=== PATIENT | female | born 1955 | race Caucasian/White ===

== ENCOUNTER 2017-07-27 14:41 | Outpatient (CLI) | payer BC | END 2017-07-27 14:42 | disposition home or self-care (01) | LOC: BICMAMMO 14:41 | PROVIDERS: ATTEND Obstetrics & Gynecology | DX: Z80.3 Family history of malignant neoplasm of breast; Z12.31 Encounter for screening mammogram for malignant neoplasm of breast | CPT/HCPCS: 77063; 77067 ==

== ENCOUNTER 2017-11-07 09:12 | Outpatient (CLI) | payer BC ==
--- NOTE | 2017-11-07 10:24 | RAD ---
TWO VIEWS LEFT HAND: Comparison: None. History: Bilateral hand pain off and on. Polyarthralgia and positive BARRIE. FINDINGS: Three views of the left hand shows no evidence of acute fracture or dislocation. There is mild joint space narrowing in the DIP joints of the fingers consistent with osteoarthritis. No soft tissue swell ing is seen. No osseous erosions are present. IMPRESSION: Mild osteoarthritis without acute osseous abnormality. POS: H
--- NOTE | 2017-11-07 10:44 | RAD ---
RIGHT HAND THREE VIEWS: History: Positive AMA laboratory result. Polyarthralgia. Comparison: None. FINDINGS: There is mild scattered osteophytosis and joint space narrowing of the right hand. No evidence of ero sive arthropathy or acute fracture. IMPRESSION: 1. Mild scattered osteophytosis of the right hand. 2. No acute osseous abnormality. POS: [facility]
== END 2017-11-07 09:13 | disposition home or self-care (01) ==
LOC: SCSRAD 09:12
DX: M25.50 Pain in unspecified joint (principal); R76.8 Other specified abnormal immunological findings in serum; M25.741 Osteophyte, right hand; M19.042 Primary osteoarthritis, left hand

== ENCOUNTER 2018-05-30 09:55 | Outpatient (CLI) | payer BC ==
--- NOTE | 2018-05-30 11:08 | RAD ---
RADIOGRAPH CHEST 2 VIEWS: HISTORY: 63-year-old female with cough. FINDINGS: There is no air space density, pulmonary edema, pleural effusion, pneumothorax, or cardiomegaly. IMPRESSION: No acute cardiopulmonary findings. alban POS: [facility]
== END 2018-05-30 09:56 | disposition home or self-care (01) ==
LOC: SCSRAD 09:55
PROVIDERS: ATTEND Family Medicine
DX: J22 Unspecified acute lower respiratory infection (principal)
CPT/HCPCS: 71046

== ENCOUNTER 2018-06-03 11:20 | Inpatient (IN) | payer BC ==
[2018-06-03 11:59] LABS: #Eosinphils 0.2 thou/uL (0.0-0.7); #Lymphocytes 1.7 thou/uL (1.20-3.40); #Monocytes 0.9 thou/uL (0.11-0.59); #Neutrophils 9.4 thou/uL (1.40-6.50); %Basophils 0.1 % (0.0-1.0); %Eosinophils 1.6 % (0.0-10.0); %Lymphocytes 14.1 % (21.0-51.0); %Monocytes 7.2 % (0.0-10.0); Hemoglobin 14.8 g/dL (12.0-16.0); Mean Corpuscular HGB CONC 31.1 g/dL (32.0-36.0); Mean Corpuscular Hemoglobin 27.4 pg (27.0-31.0); Mean Corpuscular Volume 88.1 fL (78.0-98.0); Mean Platelet Volume 6.5 fL (7.4-10.4); Platelet Count 258 thou/uL (130-400); RBC Distribution Width 12.4 % (11.5-14.5); Red Blood Cell (RBC) Count 5.38 mill/uL (4.20-5.40); White Blood Cell (WBC) Count 12.1 thou/uL (4.8-10.8)
--- NOTE | 2018-06-03 12:17 | RAD ---
PORTABLE CHEST: 06/03/2018 PROVIDED CLINICAL HISTORY: Cough. COMPARISON: 05/30/2018 FINDINGS: The cardiac and mediastinal silhouette is unchanged in appearance. The lungs appear clear. No pleur al fluid or pneumothorax apparent. IMPRESSION: No evidence for acute cardiopulmonary process. POS: [facility]
[2018-06-03 12:23] LABS: ALT (SGPT) 14 U/L (8-55); AST (SGOT) 14 U/L (5-34); Albumin 4.1 g/dL (3.4-4.8); Alkaline Phosphatase 85 U/L (40-150); Anion Gap 18 mmol/L (10-20); BUN (Urea Nitrogen) 9 mg/dL (9.8-20.1); Bilirubin, Total 0.6 mg/dL (0.2-1.2); Calc. Creatinine Clearance 0 mL/min (70-130); Calcium 10.2 mg/dL (7.8-10.44); Carbon Dioxide 19 mmol/L (23-31); Chloride 99 mmol/L (98-107); Estimated GFR-MDRD 63; Glucose 166 mg/dL (80-115); Potassium 4.3 mmol/L (3.5-5.1); Protein, Total 8.1 g/dL (6.0-8.3); Sodium 132 mmol/L (136-145)
[2018-06-03 12:52] LABS: Bilirubin Small (Negative); Blood, Urine Negative (Negative); Glucose, Urine (Dipstick) Negative (Negative); Leukocyte Negative (Negative); Nitrite Negative (Negative); Protein, Urine (Dipstick) Negative (Neg-Trace); Urobilinogen 0.2 mg/dL (0.2-1.0)
[2018-06-03 13:03] LABS: Clarity Clear (Clear); Specific Gravity, Urine 1.018 (1.002-1.036)
[2018-06-03] MEDS ORDERED: ISOVUE-370 76%-LOCM 1 ML ONE (13:12)
[2018-06-03] MEDS ORDERED: Cefepime 2 GM VIAL ONE (13:34)
[2018-06-03] MEDS ORDERED: Gentamicin Sulfate 320 MG in Sodium Chloride 0.9% 100 ML IVPB SCH (14:00)
--- NOTE | 2018-06-03 14:01 | CT ---
CT PULMONARY ANGIOGRAM WITH IV CONTRAST AND 3D MIP RECONSTRUCTIONS: DATE: 06/03/2018. PROVIDED CLINICAL HISTORY: Cough. FINDINGS: The heart, pericardium, and great vessels demonstrate no evidence for an acute process. There is no evidence for central or segmental pulmonary embolus. The main pulmonary artery segment is enlarged, suggesting elevated pulmonary arterial pressures. There is patchy multifocal airspace disease present throughout primarily both lower lobes with a few scattered areas of ground-glass opacity present in the right middle lobe, right upper lobe, and left upper lobe. The airway appears patent and of normal caliber. There is no pleural fluid or pneumothorax apparent. The visualized portions of the upper abdomen appear unremarkable other than a mild hiatal hernia. Th ere is no evidence for thoracic lymph node enlargement of mildly prominent bilateral hilar lymph node s present. The osseous structures demonstrate no concerning osteoblastic or osteolytic lesions. IMPRESSION: 1. No evidence for central or segmental pulmonary embolus. Prominence of the main pulmonary artery segment suggests elevated pulmonary arterial pressures. 2. Patchy bilateral airspace disease most conspicuously affecting the bilateral lower lobes, most co mpatible with pneumonia. Followup is recommended. POS: [facility]
[2018-06-03] MEDS ORDERED: guaiFENesin/Codeine Phosphate 200 mg/20 mg 10 ml UD Cup PO PRN (14:15)
[2018-06-03] MEDS ORDERED: Vancomycin HCl 1.5 GM in Sodium Chloride 0.9% 250 ML 300 ML IVPB SCH (14:30)
[2018-06-03] MEDS ORDERED: Bacteriostatic Water 30 ML VIAL FS PRN (14:44)
[2018-06-03] MEDS ORDERED: methylPREDNISolone Sod Succ 40 MG VIAL IVP SCH (15:00)
[2018-06-03 15:39] VITALS: BMI 36.8
[2018-06-03] MEDS ORDERED: methylPREDNISolone Sod Succ 40 MG VIAL ONE (15:51)
[2018-06-03] MEDS: Sodium Chloride 0.9% 1,000 ML IV SCH (18:10)
[2018-06-03 18:43] LABS: Legionella Urinary Ag Negative (Negative)
[2018-06-03 18:44] LABS: Strep pneumo Urine Ag NEGATIVE (NEGATIVE)
--- NOTE | 2018-06-03 18:48 | HP ---
CHIEF COMPLAINT: Shortness of breath. HISTORY OF PRESENT ILLNESS: The patient is a 63-year-old female with past medical history of asthma, sinus, and hypertension, who presented to the hospital with shortness of breath. The patient stated that since May 09, 2018, she initially started presented with sinus infection and was given Augmentin. Her symptoms continued to worsen. At this time, her antibiotic was changed to Levaquin. There was some mention per her PCP notes that it appeared the patient started to have a worsening productive cough and shortness of breath. The patient had multiple x-rays, which did fail to reveal any pneumonia. She was recently prescribed azithromycin, which she finished yesterday. She continued to have shortness of breath and cough, so she followed up with her PCP today, who asked her to come into the hospital for further evaluation. Her last chest x-ray was done on 05/30, which was normal. The patient states that she initially starts having a cough to the point that she cannot stop coughing and she gets very short of breath and cannot catch her breath. The patient denies any chest tightness, any fevers, or chills; however, she states that sometimes she gets low-grade fever. Denies any body aches or pains. The patient states that she has been coughing up some thick secretions for the past few weeks. The patient today in her doctor's office found to have low oxygenation, especially during coughing, and when she is ambulating, her oxygen saturations run at 90% to 92%. She also has hoarseness. The patient also was put on some steroids for her asthma exacerbation. This was prior in the month of April. PAST MEDICAL HISTORY: The patient has a history of GERD. She has a history of hypertension, osteoarthritis, allergies, asthma. She does have a history of sleep apnea. She has a family history of melanoma. PAST SURGICAL HISTORY: She had D and C in 1973. She had a total abdominal hysterectomy and bilateral salpingo-oophorectomy. She had a colonoscopy, that was benign. She has upper GI endoscopy in 2005 and 2008. FAMILY HISTORY: As I mentioned, history of melanoma. Father had melanoma. Mother had heart disease. SOCIAL HISTORY: The patient is a nonsmoker. No alcohol use or drug use. She is , and she works in a university. ALLERGIES: 1. SHE IS ALLERGIC TO LIPITOR, SHE GETS CRAMPS. 2. CRESTOR, SHE GETS CRAMPS. 3. MACRODANTIN. 4. SHE IS ALSO ALLERGIC TO ZETIA, SHE GETS DIARRHEA. 5. PRAVASTATIN, SHE GETS CRAMPS. MEDICATIONS: As of the followin. She takes lisinopril 10 mg daily. 2. She takes vitamin D3 of 2000 daily. 3. She takes Advair Diskus 1 puff twice a day. 4. She takes Singulair 10 mg daily. 5. She takes Celebrex 200 mg daily. 6. Omeprazole 40 mg daily. 7. Estradiol 0.5 mg daily. REVIEW OF SYSTEMS: All negative except for the ones mentioned above in the HPI. PHYSICAL EXAMINATION: VITAL SIGNS: Temperature 98.4, heart rate 93, respiratory rate 18, saturation 95% on room air, blood pressure 110/69. GENERAL: She is awake, alert, and oriented x3. She does not appear in any distress. HEENT: Appears hoarse. Pupils are equal and reactive to light. No lymphadenopathy noted. Mucous membranes are moist. CV: S1 and S2 present. No murmurs, rubs, or gallops. LUNGS: Clear upon auscultation; however, she does have a mild expiratory wheezing. ABDOMEN: Obese. Bowel sounds are present x2. No pain upon palpation. EXTREMITIES: Lower extremities; no edema. Pedal pulses are present x2. NEUROVASCULAR: No focal deficits noted. SKIN: No cuts, lesions, or bruises noted. LABORATORY RESULTS: As of the following: WBCs of 12.1, hemoglobin of 14.8, hematocrit of 47.4, platelets of 258. Chemistry; sodium of 132, potassium of 4.3, BUN of 9, creatinine 0.9. Lactic acid of 2.6. Troponin x2 were negative. LFTs were normal. Her urine was negative. She did have a CTA, which did not indicate any pulmonary embolism. She does have a patchy bilateral airspace disease, more conspicuously affecting the bilateral lower lobes, compatible with pneumonia. ASSESSMENT AND PLAN: The patient is a very pleasant 63-year-old female, who presents to the hospital with complaints of worsening shortness of breath. 1. Shortness of breath. This could be pneumonia, failed outpatient therapy versus cardiac etiology versus pulmonary embolism. Her CTA was negative for pulmonary embolism. We will trend her troponins. So far, her troponins have been negative. We will also get an echocardiogram to make sure her cardiac function is stable. We will check a BNP. The patient has been on 3 different types of antibiotics and has failed treatment. We will also swab her for the flu and viral studies. We will check a sputum culture. We will check Streptococcus pneumoniae, urine, and Legionella. We will put her on some broad-spectrum antibiotics and continue to monitor. We will also give her something for cough to hopefully suppress her cough. We will start her on some DuoNeb, and we will give her some steroids also. 2. Hypertension. We will continue her home medications. 3. Sleep apnea. We will continue her CPAP. 4. Deep venous thrombosis prophylaxis. We will put the patient on Lovenox subcutaneously. Job ID: [id number]
[2018-06-03] MEDS ORDERED: CeleCOXIB 100 MG CAP PO PRN (21:10)
[2018-06-03] MEDS: cefTRIAXone\\ROCEPHIN 2 GM in Sodium Chloride 0.9% 100 ML IVPB SCH (21:13)
[2018-06-03] MEDS ORDERED: Lisinopril 10 MG TAB PO SCH (21:15)
[2018-06-03] MEDS ORDERED: Montelukast Sodium 10 mg Tablet PO SCH (21:15)
[2018-06-03] MEDS ORDERED: Estradiol 1 MG TAB PO SCH (21:30)
[2018-06-03] MEDS ORDERED: Oseltamivir 75 MG CAP PO SCH (21:30)
[2018-06-04] MEDS: Sodium Chloride 0.9% 1,000 ML IV SCH ×2 (03:42→17:46)
[2018-06-04] MEDS: Acetaminophen 325 MG TAB PO PRN ×4 (04:05→21:57)
[2018-06-04] MEDS: Enoxaparin Sodium 40 MG/0.4 ML SYRINGE SC SCH (08:44)
[2018-06-04] MEDS: Oseltamivir 75 MG CAP PO SCH ×2 (08:45→20:03)
[2018-06-04] MEDS: methylPREDNISolone Sod Succ 40 MG VIAL IVP SCH (08:45)
--- NOTE | 2018-06-04 14:01 | PQF ---
CLINICAL DOCUMENTATION IMPROVEMENT CLARIFICATION FORM: ICD-10 Updated PLEASE DO AN ADDENDUM TO THE PROGRESS NOTE WITH ANY DOCUMENTATION UPDATES OR ADDITIONS AND CARRY THROUGH TO DC SUMMARY. THANK YOU. DATE: 06/04/18 ATTN: DR. RAZO Please exercise your independent, professional judgment in responding to the clarification form. Clinical indicators are provided on the bottom of this form for your review Please check appropriate box(s) to clarify if the following diagnosis has been ruled in or ruled out: SEPSIS [ x ] Ruled in diagnosis [ ] Continue to treat [ ] Resolved [ ] Ruled out diagnosis [ ] Cannot rule out diagnosis [ ] Other diagnosis [ ] Unable to determine In addition, please specify: Present on Admission (POA): [ x ] Yes [ ] No [ ] Unable to determine For continuity of documentation, please document condition throughout progress notes and discharge summary. Thank You. CLINICAL INDICATORS - SIGNS / SYMPTOMS / LABS ER NOTE: "SEVERE SEPSIS CRITERIA" PULSE 105 RR 25 WBC 12.1 LACTIC ACID 2.6 GLUCOSE 166 RISKS: PNEUMONIA WITH FAILURE OF OUTPATIENT TREATMENT H/O ASTHMA TREATMENT: IV GENTAMYCIN (ER) IV VANCOMYCIN (ER) IV CEFEPIME (ER) IV ROCEPHIN (06/03-PRESENT) IV VIBRAMYCIN (06/03-PRESENT) IV FLUIDS (ER-PRESENT) SERIAL LABS BLOOD CULTURES (This form is maintained as a part of the permanent medical record) 2014 [employer]. All Rights Reserved ALBERT [email or web address] Office: [phone] [facility]
--- NOTE | 2018-06-04 14:11 | PQF ---
CLINICAL DOCUMENTATION IMPROVEMENT CLARIFICATION FORM: ICD-10 Updated PLEASE DO AN ADDENDUM TO THE PROGRESS NOTE WITH ANY DOCUMENTATION UPDATES OR ADDITIONS AND CARRY THROUGH TO DC SUMMARY. THANK YOU. DATE: 06/04/18 ATTN: DR. RAZO Please exercise your independent, professional judgment in responding to the clarification form. Clinical indicators are provided on the bottom of this form for your review Please check appropriate box(s): [ ] Aspiration Pneumonia [ ] Aspiration Bronchitis [ x] Empirically treating Gram Negative Pneumonia [ ] Empirically treating Anaerobic Pneumonia [ ] Pneumonia secondary to (specify organism / underlying disease) [ ] Simple Pneumonia (community acquired - nosocomial) [ ] Bronchopneumonia [ ] Pneumonia of unknown etiology [ ] Other diagnosis [ ] Unable to determine In addition, please specify: Present on Admission (POA): [ ] Yes [ ] No [ ] Unable to determine For continuity of documentation, please document condition throughout progress notes and discharge summary. Thank You. CLINICAL INDICATORS - SIGNS / SYMPTOMS / LABS ER NOTE: "MULTIFOCAL PNEUMONIA" H&P: "THIS COULD BE PNEUMONIA, FAILED OUTPATIENT THERAPY VERSUS CARDIAC ETIOLOGY VERSUS PULMONARY EMBOLISM." PULSE 105 RR 25 WBC 12.1 LACTIC ACID 2.6 GLUCOSE 166 RISKS: PNEUMONIA WITH FAILURE OF OUTPATIENT TREATMENT H/O ASTHMA TREATMENT: IV GENTAMYCIN (ER) IV VANCOMYCIN (ER) IV CEFEPIME (ER) IV ROCEPHIN (06/03-PRESENT) IV VIBRAMYCIN (06/03-PRESENT) IV FLUIDS (ER-PRESENT) SERIAL LABS BLOOD CULTURES (This form is maintained as a part of the permanent medical record) 2014 [employer]. All Rights Reserved ALBERT [email or web address] Office: [phone] [facility]
[2018-06-04] MEDS: Benzonatate 100 MG CAP PO PRN (17:42)
[2018-06-04] MEDS: cefTRIAXone\\ROCEPHIN 2 GM in Sodium Chloride 0.9% 100 ML IVPB SCH (17:43)
[2018-06-04] MEDS: Montelukast Sodium 10 mg Tablet PO SCH (20:03)
[2018-06-04] MEDS: Lisinopril 10 MG TAB PO SCH (20:07)
[2018-06-04] MEDS: Estradiol 1 MG TAB PO SCH (21:59)
[2018-06-05] MEDS: Acetaminophen 325 MG TAB PO PRN ×3 (06:20→20:10)
[2018-06-05] MEDS: Benzonatate 100 MG CAP PO PRN ×2 (06:20→20:07)
[2018-06-05] MEDS: Sodium Chloride 0.9% 1,000 ML IV SCH ×2 (06:53→20:18)
[2018-06-05] MEDS: methylPREDNISolone Sod Succ 40 MG VIAL IVP SCH (09:29)
[2018-06-05] MEDS: Enoxaparin Sodium 40 MG/0.4 ML SYRINGE SC SCH (09:29)
[2018-06-05] MEDS: Oseltamivir 75 MG CAP PO SCH ×2 (09:29→20:07)
[2018-06-05] MEDS ORDERED: diphenhydrAMINE 50 MG/ML VIAL IVP PRN (10:25)
[2018-06-05] MEDS ORDERED: guaiFENesin ER 600 MG TAB PO SCH ×2 (10:25→11:00)
[2018-06-05] MEDS: guaiFENesin ER 600 MG TAB PO SCH (20:07)
[2018-06-05] MEDS: Montelukast Sodium 10 mg Tablet PO SCH (20:07)
[2018-06-05] MEDS: Estradiol 1 MG TAB PO SCH (20:07)
[2018-06-05] MEDS: Lisinopril 10 MG TAB PO SCH (20:08)
[2018-06-06] MEDS: Benzonatate 100 MG CAP PO PRN ×2 (05:37→17:08)
[2018-06-06] MEDS: Acetaminophen 325 MG TAB PO PRN ×3 (05:37→21:51)
[2018-06-06] MEDS: Sodium Chloride 0.9% 1,000 ML IV SCH (05:39)
--- NOTE | 2018-06-06 05:39 | PDOC.PN ---
- Subjective Encounter Start Date: 06/05/18 Encounter Start Time: 11:00 Subjective: pt up in bed feeling well, felt her face flushed after -: ceftriaxone but pt not sure, No itching - Objective Vital Signs & Weight: Vital Signs (12 hours) Temp Pulse Resp BP BP Pulse Ox 06/05/18 22:32 73 18 95 06/05/18 20:08 131/84 06/05/18 20:00 97.8 F 69 20 131/84 96 06/05/18 18:49 71 18 95 Weight Weight 195 lb I&O: 06/04/18 06/05/18 06/06/18 06:59 06:59 06:59 Intake Total 1951 540 Balance 1951 540 Result Diagrams: 06/06/18 12:26 06/06/18 12:26 Phys Exam - Physical Examination Neck: no nodes, no JVD, supple, full ROM Respiratory: no wheezing, no rales, no rhonchi, wheezing present, clear to auscultation bilateral Cardiovascular: RRR, no significant murmur, no rub, gallop, irregular Gastrointestinal: soft, non-tender, no distention, positive bowel sounds Dx/Plan (1) SOB (shortness of breath) Code(s): R06.02 - SHORTNESS OF BREATH Status: Acute (2) Influenza A Code(s): J10.1 - FLU DUE TO OTH IDENT INFLUENZA VIRUS W OTH RESP MANIFEST Status: Acute (3) Pneumonia and influenza Status: Acute - Plan pt on ceftriazone and doxy, will discontinue ceftriaxone due to pt's -: complaining of flushed face -: pt's blood cx indicated bacillus possible contaminate -: sputum indicates alpha strep * .
[2018-06-06] MEDS ORDERED: diphenhydrAMINE 25 MG CAP PO PRN (05:51)
[2018-06-06] MEDS: Enoxaparin Sodium 40 MG/0.4 ML SYRINGE SC SCH (09:03)
[2018-06-06] MEDS: predniSONE 20 MG TAB PO SCH (09:03)
[2018-06-06] MEDS: Oseltamivir 75 MG CAP PO SCH ×2 (09:04→21:45)
[2018-06-06] MEDS: guaiFENesin ER 600 MG TAB PO SCH ×2 (09:04→21:46)
[2018-06-06] MEDS: cefTRIAXone\\ROCEPHIN 1 GM in Sodium Chloride 0.9% 100 ML IVPB SCH (09:04)
[2018-06-06] MEDS ORDERED: cefTRIAXone\\ROCEPHIN 1 GM in Sodium Chloride 0.9% 100 ML IVPB SCH (10:00)
[2018-06-06 12:44] LABS: #Eosinphils 0.1 thou/uL (0.0-0.7); #Lymphocytes 2.4 thou/uL (1.20-3.40); #Monocytes 0.8 thou/uL (0.11-0.59); #Neutrophils 6.5 thou/uL (1.40-6.50); %Basophils 0.2 % (0.0-1.0); %Lymphocytes 24.9 % (21.0-51.0); %Monocytes 7.7 % (0.0-10.0); %Neutrophils 66.2 % (42.0-75.0); Hemoglobin 12.2 g/dL (12.0-16.0); Mean Corpuscular HGB CONC 33.6 g/dL (32.0-36.0); Mean Corpuscular Hemoglobin 29.3 pg (27.0-31.0); Mean Corpuscular Volume 87.2 fL (78.0-98.0); Mean Platelet Volume 6.3 fL (7.4-10.4); Platelet Count 235 thou/uL (130-400); RBC Distribution Width 12.4 % (11.5-14.5); Red Blood Cell (RBC) Count 4.17 mill/uL (4.20-5.40); White Blood Cell (WBC) Count 9.8 thou/uL (4.8-10.8)
[2018-06-06 12:58] LABS: Anion Gap 14 mmol/L (10-20); BUN (Urea Nitrogen) 17 mg/dL (9.8-20.1); Calc. Creatinine Clearance 97 mL/min (70-130); Calcium 9.2 mg/dL (7.8-10.44); Carbon Dioxide 23 mmol/L (23-31); Chloride 107 mmol/L (98-107); Estimated GFR-MDRD 70; Glucose 104 mg/dL (80-115); Potassium 3.7 mmol/L (3.5-5.1); Sodium 140 mmol/L (136-145)
--- NOTE | 2018-06-06 15:39 | PDOC.PN ---
- Subjective Encounter Start Date: 06/06/18 Encounter Start Time: 11:15 Subjective: pt up in bed feels better today - Objective Vital Signs & Weight: Vital Signs (12 hours) Temp Pulse Resp BP Pulse Ox 06/06/18 13:19 80 16 95 06/06/18 07:39 97.5 F L 63 18 133/78 94 L 06/06/18 05:53 72 16 95 Weight Weight 195 lb I&O: 06/05/18 06/06/18 06/07/18 06:59 06:59 06:59 Intake Total 1795 180 Balance 1795 180 Result Diagrams: 06/06/18 12:26 06/06/18 12:26 Phys Exam - Physical Examination Respiratory: no wheezing, no rales, no rhonchi, wheezing present, clear to auscultation bilateral Cardiovascular: RRR, no significant murmur, no rub, gallop, irregular Gastrointestinal: soft, non-tender, no distention, positive bowel sounds Musculoskeletal: no edema, pulses present, edema present Dx/Plan (1) SOB (shortness of breath) Code(s): R06.02 - SHORTNESS OF BREATH Status: Acute (2) Influenza A Code(s): J10.1 - FLU DUE TO OTH IDENT INFLUENZA VIRUS W OTH RESP MANIFEST Status: Acute (3) Pneumonia and influenza Status: Acute - Plan sputum indicated strep pneumo -: will continue ceftriaxone for now -: mucinex and neb tx -: echo normal -: blood cx one bottle positive most likely contaminate. * . Review of Systems - Review of Systems Respiratory: negative: Cough, Dry, Shortness of Breath, Hemoptysis, SOB with Excertion, Pleuritic Pain, Sputum, Wheezing Cardiovascular: negative: chest pain, palpitations, orthopnea, paroxysmal nocturnal dyspnea, edema, light headedness, other Gastrointestinal: negative: Nausea, Vomiting, Abdominal Pain, Diarrhea, Constipation, Melena, Hematochezia, Other - Medications/Allergies Allergies/Adverse Reactions: Allergies Allergy/AdvReac Type Severity Reaction Status Date / Time Sulfa (Sulfonamide AdvReac CHILLS, Verified 06/03/18 17:34 Antibiotics) NAUSEA Medications: Current Medications Acetaminophen (Tylenol) 650 mg PO Q4H PRN PRN Reason: Headache/Fever or Pain Last Admin: 06/06/18 05:37 Dose: 650 mg Albuterol/Ipratropium (Duoneb) 3 ml NEB Q4H PRN PRN Reason: SOB Last Admin: 06/06/18 13:19 Dose: 3 ml Benzonatate (Tessalon) 100 mg PO TIDPRN PRN PRN Reason: Cough Last Admin: 06/06/18 05:37 Dose: 100 mg Celecoxib (Celebrex) 200 mg PO DAILYPRN PRN PRN Reason: Pain Diphenhydramine HCl (Benadryl) 25 mg IVP TID PRN PRN Reason: Itching Last Admin: 06/06/18 09:02 Dose: 25 mg Diphenhydramine HCl (Benadryl) 25 mg PO Q6H PRN PRN Reason: Itching & Insomnia Enoxaparin Sodium (Lovenox) 40 mg SC 0900 [facility] Last Admin: 06/06/18 09:03 Dose: 40 mg Estradiol (Estrace) 0.5 mg PO HS [facility] Last Admin: 06/05/18 20:07 Dose: 0.5 mg Guaifenesin (Mucinex) 600 mg PO Q12HR [facility] Last Admin: 06/06/18 09:04 Dose: 600 mg Guaifenesin/Codeine Phosphate (Robitussin Ac) 5 ml PO HS PRN PRN Reason: Cough Ceftriaxone Sodium 1 gm/ (Sodium Chloride) 100 mls @ 200 mls/hr IVPB Q24HR [facility] Last Admin: 06/06/18 09:04 Dose: 100 mls Lisinopril (Zestril) 10 mg PO HS [facility] Last Admin: 06/05/18 20:08 Dose: 10 mg Montelukast Sodium (Singulair) 10 mg PO QPM [facility] Last Admin: 06/05/18 20:07 Dose: 10 mg Oseltamivir Phosphate (Tamiflu) 75 mg PO BID [facility] Stop: 06/08/18 09:01 Last Admin: 06/06/18 09:04 Dose: 75 mg Pantoprazole Sodium (Protonix) 40 mg PO HS [facility] Last Admin: 06/05/18 20:07 Dose: 40 mg Prednisone (Prednisone) 20 mg PO QAM-WM [facility] Last Admin: 06/06/18 09:03 Dose: 20 mg Sodium Chloride (Flush - Normal Saline) 10 ml IVF PRN PRN PRN Reason: Saline Flush Sodium Chloride (Flush - Normal Saline) 10 ml IVF Q12HR [facility] Last Admin: 06/06/18 09:04 Dose: 10 ml Sodium Chloride (Flush - Normal Saline) 10 ml IVF PRN PRN PRN Reason: Saline Flush Sterile Water (Bacteriostatic Water) 1 ml FS PRN PRN PRN Reason: RECONSTITUTION Last Admin: 06/03/18 15:57 Dose: 1 ml
[2018-06-06] MEDS: Montelukast Sodium 10 mg Tablet PO SCH (21:45)
[2018-06-06] MEDS: Lisinopril 10 MG TAB PO SCH (21:45)
[2018-06-06] MEDS: Estradiol 1 MG TAB PO SCH (21:46)
[2018-06-07] MEDS: Acetaminophen 325 MG TAB PO PRN ×2 (05:05→09:43)
[2018-06-07] MEDS: Benzonatate 100 MG CAP PO PRN (05:06)
[2018-06-07 07:38] VITALS: BP 134/78; TEMP 97.4
[2018-06-07] MEDS: cefTRIAXone\\ROCEPHIN 1 GM in Sodium Chloride 0.9% 100 ML IVPB SCH (09:37)
[2018-06-07] MEDS: Enoxaparin Sodium 40 MG/0.4 ML SYRINGE SC SCH (09:38)
[2018-06-07] MEDS: Oseltamivir 75 MG CAP PO SCH (09:38)
[2018-06-07] MEDS: predniSONE 20 MG TAB PO SCH (09:38)
[2018-06-07] MEDS: guaiFENesin ER 600 MG TAB PO SCH (09:40)
--- NOTE | 2018-06-10 01:12 | DIS ---
DATE OF ADMISSION: 06/04/2018 DATE OF DISCHARGE: 06/07/2018 DISCHARGE DIAGNOSES: As of the following; 1. Shortness of breath. 2. Influenza A. 3. Pneumonia and influenza. HOSPITAL COURSE: The patient is a 63-year-old female who had been on and off antibiotics for the past month and a half who continued to the hospital with worsening shortness of breath and hoarseness. The patient at this time underwent a CTA to rule out PE, which was negative for PE, but it was indicated that she had patchy bilateral airspace disease most likely in the bilateral lower lobes, compatible with pneumonia. The patient at that time also was put on broad-spectrum antibiotics. Nasal swab was done, which indicated to be influenza A. She had an echocardiogram, which indicated of 60% to 65%. The patient was put on Tamiflu at this time. Her symptoms continued to improve throughout the hospital stay. She was also put on DuoNebs and steroids. The patient was then discharged home. She will follow up with her primary care doctor as needed. She also had sputum culture that was positive for strep pneumo. She will be discharged home with amoxicillin 500 mg q.8 hours, Tessalon Perles 100 t.i.d. p.r.n., ipratropium DuoNeb 3 mL q.4 hours p.r.n., Tamiflu 75 mg b.i.d. for another day, Mucinex 600 mg every 12 hours, Nexium 40 mg at bedtime, Singulair 10 mg at bedtime, and lisinopril 10 mg at bedtime. DISCHARGE PHYSICAL EXAMINATION: VITAL SIGNS: On discharge; temperature 97.4, pulse 59, respirations 20, O2 saturations 95% on room air, and blood pressure 134/78. GENERAL: She is awake, alert, and oriented x3. Does not appear in distress. CV: S1, S2 present. No murmurs, rubs, or gallops. ABDOMEN: Soft and nontender. Bowel sounds are present x2. EXTREMITIES: No edema. Again, she will be discharged home. She will follow up with her primary care doctor as needed. Job ID: [id number]
== END 2018-06-07 16:03 | disposition home or self-care (01) | DRG 871 ==
LOC: ERS 11:20 → ERHOLD 13:50 → INTOOBSV 13:50 → 2SW 17:11 → T4-B 19:33 → OBSVTOIN 06-04 04:47
PROVIDERS: ADMIT Internal Medicine; ATTEND Internal Medicine
DX: A41.9 Sepsis, unspecified organism (principal); J15.6 Pneumonia due to other Gram-negative bacteria; J45.909 Unspecified asthma, uncomplicated; I10 Essential (primary) hypertension; K21.9 Gastro-esophageal reflux disease without esophagitis; M19.90 Unspecified osteoarthritis, unspecified site; G47.30 Sleep apnea, unspecified; J10.1 Influenza due to other identified influenza virus with other respiratory manifestations; Z90.710 Acquired absence of both cervix and uterus; Z90.722 Acquired absence of ovaries, bilateral; Z88.8 Allergy status to other drugs, medicaments and biological substances; Z88.1 Allergy status to other antibiotic agents; Z79.899 Other long term (current) drug therapy
CPT/HCPCS: 36415; 71046; 71275; 80048; 80053; 81003; 83605; 83880; 84145; 84484; 85025; 87040; 87070; 87077; 87186; 87205; 87633; 87798; 87899; 93005; 93306; 94640; 96361; 96365; 96366; 96367; J0692; J0696; J1200; J1580; J1650; J2920; J3370; J7050; J7620; Q0163; Q9966

== ENCOUNTER 2018-08-23 13:10 | Outpatient (CLI) | payer BC ==
--- NOTE | 2018-08-23 15:53 | MMO ---
Bilateral MAMMO Bilat Screen [facility]. CLINICAL HISTORY: Patient is 63 years old and is seen for screening. The patient has the following personal history of cancer. VIEWS: The views performed were: bilateral craniocaudal with tomosynthesis and bilateral mediolateral oblique with tomosynthesis. FILMS COMPARED: The present examination has been compared to prior imaging studies performed at [facility] on 04/18/2013, 04/20/2014, 04/26/2015, 05/05/2016 and 07/27/2017. MAMMOGRAM FINDINGS: There are scattered fibroglandular densities. Benign calcifications are noted bilaterally. There are no suspicious masses, suspicious calcifications, or new areas of architectural distortion. IMPRESSION: THERE IS NO MAMMOGRAPHIC EVIDENCE OF MALIGNANCY. A ROUTINE FOLLOW-UP MAMMOGRAM IN 1 YEAR IS RECOMMENDED. THE RESULTS OF THIS EXAM WERE SENT TO THE PATIENT. ACR BI-RADS Category 2 - Benign finding MAMMOGRAPHY NOTE: 1. A negative mammogram report should not delay a biopsy if a dominant of clinically suspicious mass is present. 2. Approximately 10% to 15% of breast cancers are not detected by mammography. 3. Adenosis and dense breasts may obscure an underlying neoplasm.
== END 2018-08-23 13:11 | disposition home or self-care (01) ==
LOC: BICMAMMO 13:10
PROVIDERS: ATTEND Obstetrics & Gynecology
DX: Z12.31 Encounter for screening mammogram for malignant neoplasm of breast (principal)
CPT/HCPCS: 77063; 77067

== ENCOUNTER 2019-02-27 07:08 | Outpatient (CLI) | payer BC ==
--- NOTE | 2019-02-27 10:07 | ULT ---
ULTRASOUND ABDOMEN: Date: 02/27/19 HISTORY: Upper abdominal pain. COMPARISON: None. FINDINGS: Real-time Carney scale and color evaluation of the abdomen was performed. The visualized portions of the aorta, IVC, and pancreas are unremarkable. Diffuse increased hepatic e chotexture without mass. Common bile duct is normal, measuring less than 5 mm. Gallbladder wall thickness is normal. No perich olecystic fluid. Right kidney measures 10.7 x 5.1 x 5.0 cm. Left kidney measures 11.8 x 5.7 x 5.7 cm. No renal mass, hydronephrosis, or abnormal calcifications. Splenic length upper limits of normal, nearly 12 cm. IMPRESSION: 1. Diffuse increased hepatic echotexture suggesting steatosis. 2. No acute gallbladder pathology. POS: OFF
== END 2019-02-27 07:09 | disposition home or self-care (01) ==
LOC: SCSULT 07:08
PROVIDERS: ATTEND Family Medicine
DX: R10.10 Upper abdominal pain, unspecified (principal)
CPT/HCPCS: 93975

== ENCOUNTER 2020-04-01 15:02 | Outpatient (CLI) | payer MEDICARE ==
--- NOTE | 2020-04-01 16:37 | MMO ---
Bilateral MAMMO Bilat Screen [facility]. CLINICAL HISTORY: Patient is 65 years old and is seen for screening. The patient has the following personal history of cancer. VIEWS: The views performed were: bilateral craniocaudal with tomosynthesis and bilateral mediolateral oblique with tomosynthesis. FILMS COMPARED: The present examination has been compared to prior imaging studies performed at [facility] on 04/26/2015, 05/05/2016, 07/27/2017 and 08/23/2018. This study has been interpreted with the assistance of computer-aided detection. MAMMOGRAM FINDINGS: There are scattered fibroglandular densities. Finding 1: There are stable benign appearing calcifications seen in both breasts. Finding 2: There are stable benign appearing densities seen in both breasts. There are no suspicious masses, suspicious calcifications, or new areas of architectural distortion. IMPRESSION: THERE IS NO MAMMOGRAPHIC EVIDENCE OF MALIGNANCY. A ROUTINE FOLLOW-UP MAMMOGRAM IN 1 YEAR IS RECOMMENDED. THE RESULTS OF THIS EXAM WERE SENT TO THE PATIENT. ACR BI-RADS Category 2 - Benign finding MAMMOGRAPHY NOTE: 1. A negative mammogram report should not delay a biopsy if a dominant of clinically suspicious mass is present. 2. Approximately 10% to 15% of breast cancers are not detected by mammography. 3. Adenosis and dense breasts may obscure an underlying neoplasm. Reported by: MARC WILLOUGHBY MD Electonically Signed: [id number]
--- NOTE | 2020-04-01 17:49 | BD ---
Exam: DEXA Bone Density 04/01/20 HISTORY: Postmenopausal screening for osteoporosis. Lumbar Spine: BMD (g/cm2) T-SCORE Z-SCORE L1 0.964 -0.2 1.4 L2 1.120 0.7 2.5 L3 1.153 0.6 2.5 L4 1.150 0.8 2.8 L1-L4 1.102 0.5 2.3 Femoral Neck: 0.723 -1.1 0.4 Total Femur: 1.209 0.7 2.0 The ten year fracture risk for a major osteoporotic fracture is 7.6% and for hip fracture is 0.6%. Impression: Osteopenia. POS: AH
== END 2020-04-01 15:03 | disposition home or self-care (01) ==
LOC: BICMAMMO 15:02
PROVIDERS: ATTEND Family Medicine
DX: Z12.31 Encounter for screening mammogram for malignant neoplasm of breast (principal); Z13.820 Encounter for screening for osteoporosis; M85.859 Other specified disorders of bone density and structure, unspecified thigh; Z78.0 Asymptomatic menopausal state; Z85.9 Personal history of malignant neoplasm, unspecified
CPT/HCPCS: 77063; 77067; 77080

== ENCOUNTER 2020-04-25 06:09 | Emergency (ER) | payer MEDICARE ==
[2020-04-25 07:16] LABS: ALT (SGPT) 20 U/L (8-55); AST (SGOT) 30 U/L (5-34); Albumin 3.8 g/dL (3.4-4.8); Alkaline Phosphatase 73 U/L (40-110); Anion Gap 14 mmol/L (10-20); BUN (Urea Nitrogen) 8 mg/dL (9.8-20.1); Bilirubin, Total 0.5 mg/dL (0.2-1.2); Calc. Creatinine Clearance 0 mL/min (70-130); Calcium 8.8 mg/dL (7.8-10.44); Carbon Dioxide 25 mmol/L (23-31); Chloride 101 mmol/L (98-107); Globulin 3.2 g/dL (2.4-3.5); Glucose 116 mg/dL (80-115); Potassium 4.1 mmol/L (3.5-5.1); Sodium 136 mmol/L (136-145)
[2020-04-25 07:22] LABS: #Lymphocytes 1.1 thou/uL (1.20-3.40); #Monocytes 0.3 thou/uL (0.11-0.59); #Neutrophils 1.9 thou/uL (1.40-6.50); %Basophils 0.3 % (0.0-1.0); %Eosinophils 0.3 % (0.0-10.0); %Monocytes 9.4 % (0.0-10.0); %Neutrophils 57.1 % (42.0-75.0); Hemoglobin 13.6 g/dL (12.0-16.0); Mean Corpuscular HGB CONC 31.6 g/dL (32.0-36.0); Mean Corpuscular Hemoglobin 26.6 pg (27.0-31.0); Mean Platelet Volume 7.5 fL (7.4-10.4); Platelet Count 112 thou/uL (130-400); Platelet Morphology Comment Appears Decreased; RBC Distribution Width 12.9 % (11.5-14.5); White Blood Cell (WBC) Count 3.3 thou/uL (4.8-10.8)
--- NOTE | 2020-04-25 07:44 | RAD ---
Chest one view HISTORY: Fever and cough. COMPARISON: 12/08/2019. FINDINGS: Cardiac silhouette is magnified by projection. Pulmonary vasculature upper limits of normal . Mediastinum is midline. Subtle ill-defined parenchymal opacity projects over the right lung base. Very mild left perihilar gr oundglass opacity. No lobar consolidation or evidence of pneumothorax. IMPRESSION : Subtle bilateral infiltrates. Correlate for COVID pneumonitis.
[2020-04-25] MEDS ORDERED: Dexamethasone 10 MG/ML VIAL ONE (08:01)
[2020-04-25] MEDS ORDERED: Albuterol 200 PUFF (6.7GM INHALER) ONE (08:01)
[2020-04-25 09:45] LABS: SARS-CoV-2 NAA Rapid Test DETECTED (NotDetected)
== END 2020-04-25 09:12 | disposition home or self-care (01) ==
LOC: ERS 06:09
DX: U07.1 COVID-19 (principal); M19.90 Unspecified osteoarthritis, unspecified site; M85.80 Other specified disorders of bone density and structure, unspecified site; J45.909 Unspecified asthma, uncomplicated; I10 Essential (primary) hypertension; Z79.899 Other long term (current) drug therapy
CPT/HCPCS: 0240U; 71045; 80053; 83880; 84484; 85025; 93005; 36415; 96374; J1100

== ENCOUNTER 2020-09-01 23:37 | Inpatient (IN) | payer MEDICARE ==
[2020-09-02 00:09] LABS: Bilirubin Negative (Negative); Blood, Urine Negative (Negative); Clarity Clear (Clear); Glucose, Urine (Dipstick) Normal (Negative); Ketone, Urine Negative (Negative); Leukocyte Negative Leu/uL (Negative); Nitrite Negative (Negative); Protein, Urine (Dipstick) Negative (Neg-Trace); Urobilinogen Normal mg/dL (Less than 2); pH, Urine 7.5 (5.0-9.0)
[2020-09-02 00:16] LABS: #Eosinphils 0.1 thou/uL (0.0-0.7); #Lymphocytes 1.9 thou/uL (1.20-3.40); #Monocytes 0.9 thou/uL (0.11-0.59); %Basophils 0.3 % (0.0-1.0); %Eosinophils 0.9 % (0.0-10.0); %Lymphocytes 19.1 % (21.0-51.0); %Monocytes 8.9 % (0.0-10.0); %Neutrophils 70.9 % (42.0-75.0); Hemoglobin 14.1 g/dL (12.0-16.0); Mean Corpuscular HGB CONC 32.1 g/dL (32.0-36.0); Mean Corpuscular Hemoglobin 27.6 pg (27.0-31.0); Mean Corpuscular Volume 85.9 fL (78.0-98.0); Mean Platelet Volume 7.6 fL (7.4-10.4); Platelet Count 154 thou/uL (130-400); RBC Distribution Width 12.7 % (11.5-14.5); White Blood Cell (WBC) Count 9.9 thou/uL (4.8-10.8)
[2020-09-02] MEDS ORDERED: Ondansetron PF 4 MG/2 ML Vial ONE ×2 (00:31→02:25)
[2020-09-02] MEDS ORDERED: Morphine 4 MG/ML VIAL ONE ×2 (00:32→01:49)
[2020-09-02 00:36] LABS: Anion Gap 15 mmol/L (10-20); BUN (Urea Nitrogen) 20 mg/dL (9.8-20.1); Bilirubin, Total 0.7 mg/dL (0.2-1.2); Calc. Creatinine Clearance 0 mL/min (70-130); Calcium 9.4 mg/dL (7.8-10.44); Carbon Dioxide 25 mmol/L (23-31); Chloride 102 mmol/L (98-107); Globulin 2.7 g/dL (2.4-3.5); Glucose 183 mg/dL (80-115); Potassium 4.1 mmol/L (3.5-5.1); Protein, Total 6.7 g/dL (5.8-8.1); Sodium 138 mmol/L (136-145)
[2020-09-02 00:37] LABS: ALT (SGPT) 57 U/L (8-55); AST (SGOT) 109 U/L (5-34); Alkaline Phosphatase 84 U/L (40-110)
[2020-09-02 00:50] LABS: Lipase 4754 U/L (8-78)
[2020-09-02] MEDS ORDERED: Ondansetron PF 4 MG/2 ML Vial IVP PRN (02:43)
[2020-09-02] MEDS ORDERED: Bisacodyl 5 MG TAB PO PRN (02:43)
[2020-09-02] MEDS ORDERED: hydrALAZINE 20 MG/ML VIAL SLOW IVP PRN (02:45)
[2020-09-02] MEDS ORDERED: Morphine 2 MG/ML VIAL SLOW IVP PRN (02:45)
[2020-09-02] MEDS: Famotidine/PF 20 mg/2ml Vial SLOW IVP SCH ×2 (03:32→20:55)
[2020-09-02] MEDS: Sodium Chloride 0.9% 1,000 ML IV SCH ×3 (03:33→17:28)
[2020-09-02] MEDS: Morphine 4 MG/ML VIAL SLOW IVP PRN ×2 (03:33→08:27)
[2020-09-02 04:22] VITALS: BMI 39.1
[2020-09-02 06:28] LABS: ALT (SGPT) 82 U/L (8-55); AST (SGOT) 105 U/L (5-34); Albumin 3.7 g/dL (3.4-4.8); Alkaline Phosphatase 83 U/L (40-110); Anion Gap 14 mmol/L (10-20); BUN (Urea Nitrogen) 15 mg/dL (9.8-20.1); Bilirubin, Total 0.4 mg/dL (0.2-1.2); Calc. Creatinine Clearance 96 mL/min (70-130); Calcium 8.2 mg/dL (7.8-10.44); Carbon Dioxide 21 mmol/L (23-31); Chloride 105 mmol/L (98-107); Globulin 2.6 g/dL (2.4-3.5); Glucose 133 mg/dL (80-115); Lipase 788 U/L (8-78); Magnesium 1.7 mg/dL (1.6-2.6); Potassium 4.7 mmol/L (3.5-5.1); Protein, Total 6.3 g/dL (5.8-8.1); Sodium 135 mmol/L (136-145)
[2020-09-02 06:31] LABS: Troponin I Less than 0.010 ng/mL (< 0.028)
[2020-09-02 06:41] LABS: Hemoglobin 13.2 g/dL (12.0-16.0); Mean Corpuscular HGB CONC 32.4 g/dL (32.0-36.0); Mean Corpuscular Hemoglobin 28.5 pg (27.0-31.0); Mean Corpuscular Volume 88.1 fL (78.0-98.0); Mean Platelet Volume 7.7 fL (7.4-10.4); Platelet Count 145 thou/uL (130-400); RBC Distribution Width 12.6 % (11.5-14.5); Red Blood Cell (RBC) Count 4.62 mill/uL (4.20-5.40); White Blood Cell (WBC) Count 6.5 thou/uL (4.8-10.8)
[2020-09-02 07:04] LABS: Band 12 % (5-11); Lymphocytes 22 % (21-51); MDiff Complete? YES; Monocytes 2 % (0-10); Neutrophil 64 % (42-75)
[2020-09-02] MEDS: Enoxaparin Sodium 40 MG/0.4 ML SYRINGE SC SCH (08:25)
[2020-09-02] MEDS ORDERED: Iopamidol-370 76% 500 ML 1 ML ONE (14:41)
[2020-09-02 14:50] LABS: SARS-CoV-2 PCR by NAA Not Detected (NotDetected)
[2020-09-03] MEDS: Sodium Chloride 0.9% 1,000 ML IV SCH ×3 (01:33→20:14)
[2020-09-03] MEDS: Morphine 4 MG/ML VIAL SLOW IVP PRN ×4 (05:24→23:37)
[2020-09-03 05:51] LABS: Hemoglobin 12.7 g/dL (12.0-16.0); Mean Corpuscular HGB CONC 32.1 g/dL (32.0-36.0); Mean Corpuscular Volume 87.4 fL (78.0-98.0); Mean Platelet Volume 7.7 fL (7.4-10.4); Platelet Count 134 thou/uL (130-400); RBC Distribution Width 12.7 % (11.5-14.5); Red Blood Cell (RBC) Count 4.52 mill/uL (4.20-5.40); White Blood Cell (WBC) Count 5.2 thou/uL (4.8-10.8)
[2020-09-03 05:57] LABS: Anion Gap 11 mmol/L (10-20); BUN (Urea Nitrogen) 15 mg/dL (9.8-20.1); Calc. Creatinine Clearance 101 mL/min (70-130); Calcium 8.3 mg/dL (7.8-10.44); Carbon Dioxide 27 mmol/L (23-31); Chloride 106 mmol/L (98-107); Glucose 87 mg/dL (80-115); Lipase 24 U/L (8-78); Potassium 4.3 mmol/L (3.5-5.1); Sodium 140 mmol/L (136-145)
[2020-09-03 06:05] LABS: Eosinophils 4 % (0-10); Lymphocytes 49 % (21-51); MDiff Complete? YES; Monocytes 8 % (0-10); Neutrophil 28 % (42-75); Platelet Morphology Comment Appears Adequate; RBC Morphology Normal; Reactive Lymphocytes 11 % (0-10)
[2020-09-03] MEDS: Famotidine/PF 20 mg/2ml Vial SLOW IVP SCH ×2 (08:03→20:14)
[2020-09-03] MEDS: Enoxaparin Sodium 40 MG/0.4 ML SYRINGE SC SCH (10:07)
[2020-09-04] MEDS: Sodium Chloride 0.9% 1,000 ML IV SCH ×3 (00:57→19:37)
[2020-09-04 06:08] LABS: Hemoglobin 12.2 g/dL (12.0-16.0); Mean Corpuscular HGB CONC 33.6 g/dL (32.0-36.0); Mean Corpuscular Hemoglobin 29.5 pg (27.0-31.0); Mean Corpuscular Volume 87.6 fL (78.0-98.0); RBC Distribution Width 12.5 % (11.5-14.5); Red Blood Cell (RBC) Count 4.15 mill/uL (4.20-5.40)
[2020-09-04 06:21] LABS: Anion Gap 10 mmol/L (10-20); BUN (Urea Nitrogen) 11 mg/dL (9.8-20.1); Calc. Creatinine Clearance 105 mL/min (70-130); Calcium 8.1 mg/dL (7.8-10.44); Carbon Dioxide 26 mmol/L (23-31); Chloride 109 mmol/L (98-107); Glucose 82 mg/dL (80-115); Lipase 10 U/L (8-78); Potassium 4.2 mmol/L (3.5-5.1); Sodium 141 mmol/L (136-145)
[2020-09-04 06:38] LABS: Eosinophils 5 % (0-10); Lymphocytes 54 % (21-51); MDiff Complete? YES; Mean Platelet Volume 7.5 fL (7.4-10.4); Monocytes 4 % (0-10); Neutrophil 37 % (42-75); Platelet Count 117 thou/uL (130-400); Platelet Morphology Comment Appears Decreased
[2020-09-04] MEDS: Enoxaparin Sodium 40 MG/0.4 ML SYRINGE SC SCH (09:00)
[2020-09-04] MEDS: Famotidine/PF 20 mg/2ml Vial SLOW IVP SCH ×2 (09:30→20:11)
[2020-09-04] MEDS ORDERED: Bupivacaine 0.25% HCL 30 ML VIAL ONE (12:31)
[2020-09-04] MEDS ORDERED: Iothalamate Meglumine 60% 50 ML VIAL FS ONE (12:31)
[2020-09-04] MEDS ORDERED: Sodium Chloride 0.9% 30 ML ONE (12:32)
[2020-09-04] MEDS ORDERED: Fentanyl 100 MCG/2 ML VIAL ONE ×2 (12:38→14:36)
[2020-09-04] MEDS ORDERED: Lidocaine 1% w/Epinephrine 1:100K 20 ML VIAL ONE (12:41)
[2020-09-04] MEDS ORDERED: Lidocaine 1% PF 5 ML VIAL ONE (12:49)
[2020-09-04] MEDS ORDERED: PROPOFOL 200 MG/20 ML VIAL ONE (12:49)
[2020-09-04] MEDS ORDERED: Ketorolac Tromethamine 30 MG/ML VIAL ONE (12:49)
[2020-09-04] MEDS ORDERED: Rocuronium Bromide 10 MG/ML (10ML VIAL) ONE (12:49)
[2020-09-04] MEDS ORDERED: Glycopyrrolate 0.2 MG/ML 5 ML SYRINGE ONE (12:49)
[2020-09-04] MEDS ORDERED: HYDROcodone/Acetaminophen 7.5/325 mg Tablet PO PRN ×2 (14:15)
[2020-09-04] MEDS ORDERED: HYDROmorphone 2 MG/ML VIAL SLOW IVP PRN (14:22)
[2020-09-04] MEDS ORDERED: Promethazine HCl 25 MG/ML VIAL SLOW IVP PRN (14:22)
[2020-09-04] MEDS ORDERED: Morphine Sulfate 2 MG/ML SYRINGE SLOW IVP PRN (14:22)
[2020-09-04] MEDS ORDERED: Promethazine HCl 25 MG/ML VIAL IM PRN (14:22)
[2020-09-04] MEDS ORDERED: Ondansetron HCl/PF 4 MG/2 ML Vial IVP PRN (14:22)
[2020-09-04] MEDS ORDERED: PACU-Morphine 4MG/ML VIAL SLOW IVP PRN (14:22)
[2020-09-04 16:28] LABS: ALT (SGPT) 80 U/L (8-55); AST (SGOT) 103 U/L (5-34); Albumin 3.6 g/dL (3.4-4.8); Alkaline Phosphatase 71 U/L (40-110); Anion Gap 12 mmol/L (10-20); BUN (Urea Nitrogen) 10 mg/dL (9.8-20.1); Bilirubin, Total 0.4 mg/dL (0.2-1.2); Calc. Creatinine Clearance 96 mL/min (70-130); Calcium 8.4 mg/dL (7.8-10.44); Carbon Dioxide 26 mmol/L (23-31); Chloride 105 mmol/L (98-107); Globulin 2.5 g/dL (2.4-3.5); Glucose 140 mg/dL (80-115); Potassium 4.5 mmol/L (3.5-5.1); Protein, Total 6.1 g/dL (5.8-8.1); Sodium 138 mmol/L (136-145)
[2020-09-05] MEDS: Sodium Chloride 0.9% 1,000 ML IV SCH ×2 (01:06→10:24)
[2020-09-05 06:17] LABS: #Lymphocytes 1.4 thou/uL (1.20-3.40); #Monocytes 0.4 thou/uL (0.11-0.59); #Neutrophils 4.6 thou/uL (1.40-6.50); %Basophils 0.5 % (0.0-1.0); %Eosinophils 0.3 % (0.0-10.0); %Lymphocytes 21.3 % (21.0-51.0); %Monocytes 6.2 % (0.0-10.0); %Neutrophils 71.8 % (42.0-75.0); Hemoglobin 13.3 g/dL (12.0-16.0); Mean Corpuscular HGB CONC 32.8 g/dL (32.0-36.0); Mean Corpuscular Hemoglobin 28.2 pg (27.0-31.0); Mean Corpuscular Volume 86.1 fL (78.0-98.0); Mean Platelet Volume 7.7 fL (7.4-10.4); Platelet Count 140 thou/uL (130-400); RBC Distribution Width 12.4 % (11.5-14.5); White Blood Cell (WBC) Count 6.4 thou/uL (4.8-10.8)
[2020-09-05] MEDS: Famotidine/PF 20 mg/2ml Vial SLOW IVP SCH (08:39)
[2020-09-05] MEDS: Enoxaparin Sodium 40 MG/0.4 ML SYRINGE SC SCH (08:44)
[2020-09-05 09:42] VITALS: BP 151/75; TEMP 98.4
== END 2020-09-05 12:30 | disposition home or self-care (01) | DRG 417 ==
LOC: ERS 23:37 → T4-B 09-02 02:33
PROVIDERS: ADMIT Internal Medicine; ATTEND Internal Medicine
PROC: BF111ZZ Fluoroscopy of Biliary and Pancreatic Ducts using Low Osmolar Contrast (ICD-10-PCS; principal; 2020-09-04)
PROC: 0FT44ZZ Resection of Gallbladder, Percutaneous Endoscopic Approach (ICD-10-PCS; 2020-09-04)
DX: K80.62 Calculus of gallbladder and bile duct with acute cholecystitis without obstruction (principal); K85.10 Biliary acute pancreatitis without necrosis or infection; E87.2 Acidosis; J44.9 Chronic obstructive pulmonary disease, unspecified; E66.9 Obesity, unspecified; I10 Essential (primary) hypertension; M19.90 Unspecified osteoarthritis, unspecified site; G47.30 Sleep apnea, unspecified; Z88.2 Allergy status to sulfonamides; Z90.710 Acquired absence of both cervix and uterus; Z90.79 Acquired absence of other genital organ(s); Z90.722 Acquired absence of ovaries, bilateral; Z83.79 Family history of other diseases of the digestive system; Z68.39 Body mass index [BMI] 39.0-39.9, adult
CPT/HCPCS: 36415; 36416; 47532; 71045; 74177; 76705; 78227; 80048; 80053; 81003; 83690; 83735; 84443; 84484; 85007; 85025; 85027; 87635; 88304; 90471; 93005; 96374; 96375; 96376; A9537; J0500; J0690; J1610; J1650; J1885; J2270; J2405; J2704; J3010; Q9961; Q9967; S0020; S0028; U0003; U0005

== ENCOUNTER 2021-04-11 19:30 | Outpatient (CLI) | payer MEDICARE | END 2021-04-11 19:31 | disposition home or self-care (01) | LOC: SLEEPLAB 19:30 | PROVIDERS: ATTEND Family Medicine | DX: G47.33 Obstructive sleep apnea (adult) (pediatric) (principal); R53.83 Other fatigue; R06.83 Snoring; E66.9 Obesity, unspecified; I10 Essential (primary) hypertension; G47.10 Hypersomnia, unspecified; G47.00 Insomnia, unspecified; G47.61 Periodic limb movement disorder; Z68.38 Body mass index [BMI] 38.0-38.9, adult | CPT/HCPCS: 95811 ==

== ENCOUNTER 2021-04-21 13:21 | Outpatient (CLI) | payer MEDICARE | END 2021-04-21 13:22 | disposition home or self-care (01) | LOC: BICMAMMO 13:21 | PROVIDERS: ATTEND Family Medicine | DX: Z12.31 Encounter for screening mammogram for malignant neoplasm of breast (principal) | CPT/HCPCS: 77063; 77067 ==

== ENCOUNTER 2022-05-29 08:06 | Outpatient (CLI) | payer OTHER | END 2022-05-29 08:07 | disposition home or self-care (01) | LOC: BICMAMMO 08:06 | PROVIDERS: ATTEND Family Medicine | DX: Z12.31 Encounter for screening mammogram for malignant neoplasm of breast (principal); Z13.820 Encounter for screening for osteoporosis; M85.851 Other specified disorders of bone density and structure, right thigh; M85.852 Other specified disorders of bone density and structure, left thigh; Z78.0 Asymptomatic menopausal state; Z85.3 Personal history of malignant neoplasm of breast | CPT/HCPCS: 77063; 77067; 77080 ==

== ENCOUNTER 2023-05-31 07:55 | Outpatient (CLI) | payer OTHER | END 2023-05-31 07:56 | disposition home or self-care (01) | LOC: BICMAMMO 07:55 | PROVIDERS: ATTEND Family Medicine | DX: Z12.31 Encounter for screening mammogram for malignant neoplasm of breast (principal); Z85.3 Personal history of malignant neoplasm of breast | CPT/HCPCS: 77063; 77067 ==

== ENCOUNTER 2024-06-02 10:47 | Outpatient (CLI) | payer OTHER, MEDICARE | END 2024-06-02 10:48 | disposition home or self-care (01) | LOC: BICMAMMO 10:47 | PROVIDERS: ATTEND Family Medicine | DX: Z12.31 Encounter for screening mammogram for malignant neoplasm of breast (principal); Z78.0 Asymptomatic menopausal state; M85.851 Other specified disorders of bone density and structure, right thigh; M85.852 Other specified disorders of bone density and structure, left thigh; Z85.89 Personal history of malignant neoplasm of other organs and systems | CPT/HCPCS: 77063; 77067; 77080 ==